=== PATIENT | male | born 1965 | race Caucasian/White ===

== ENCOUNTER 2021-04-01 14:59 | Emergency (ER) | payer MEDICARE, SELFPAY ==
[2021-04-01 15:01] VITALS: BP 176/91; PULSE 66; RESP 19; TEMP 36.4; O2SAT 97; BMI 30.4
--- NOTE | 2021-04-01 15:10 | ECG_ITS ---
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 Measurements Intervals [place] Rate: 62 P: 15 CO: 155 QRS: 49 QRSD: 91 T: 64 QT: 451 QTc: 461 Interpretive Statements SINUS RHYTHM Compared to ECG 08/28/2016 07:34:25 Sinus bradycardia no longer present T-wave abnormality no longer present Electronically Signed On 04-01-2021 16:18:53 CDT by Edward Mojica M.D. [id number]
--- NOTE | 2021-04-01 15:10 | XR_ITS ---
WS: [id number] Exam: XR chest 1V portable [id number] Date/Time of Exam: 04/01/2021 3:10 PM Reason For Exam: weakness Comparison 03/09/2018. The lungs are clear and fully inflated. Normal cardiomediastinal structures and bony elements. Signs of previous median sternotomy. XR/XR chest 1V portable [id number] IMPRESSION: 1. No acute cardiopulmonary process.
--- NOTE | 2021-04-01 15:12 | ED_ITS ---
Documented by User: DARRIUS Velasquez 04/03/21 07:10 HPI - Weakness General: Chief complaint: General Medical Stated complaint: GENERALIZED WEAKNESS/ NAUSEA Time Seen by Provider: 04/01/21 15:02 Source: patient Mode of arrival: EMS Limitations: no limitations History of Present Illness: HPI Narrative: Patient is a nice 55-year-old male who presents to ED today with a complaint of generalized weakness, nausea/vomiting, and a headache. Patient tells me he was outside working in the yard yesterday when he became very hot. He states since that time he has felt very weak and has had a headache. He states he does have a history of headaches but has not had one this severe in a long time. Denies visual changes. Patient is a chronic kidney disease patient on hemodialysis MW. He states he was at dialysis today and became nauseous. He states he has vomited a total of 4 times today-nonbloody emesis. No abdominal pain. No fevers. No neck pain. Urinating normally. He does not have any complaints of chest pain or SOB. MD Complaint: generalized weakness Onset (ago): day(s) (yesterday) Duration: constant Location: generalized Migration: none Relieving factors: none Exacerbating factors: none Associated symptoms: Reports headache(s), nausea and vomiting; Denies chest pain, chills, dysuria, fever(s) or syncope Review of Systems Const: Denies: fever(s), chills, body aches, change in appetite, change in weight, fatigue or malaise Eyes: Denies: change in vision, blurry vision, photophobia, floaters or seeing flashes Card: Denies: chest pain, palpitations, irregular heart rhythm, edema, swelling of feet/ankles, lightheadedness, syncope, pre-syncope, dyspnea on exertion, orthopnea, leg pain with exertion or acrocyanosis Resp: Denies: dyspnea, productive cough or pain on inspiration GI: Reports: nausea and vomiting; Denies: abdominal pain, heartburn or diarrhea : Denies: flank pain, difficulty urinating or dysuria Musc: Denies: neck pain, back pain, extremity pain, extremity swelling, joint pain or joint swelling Skin/Breast: Denies: rash Neuro: Reports: headache(s) and other (generalized weakness); Denies: numbness in extremities, sensory changes, lack of coordination, difficulty walking, frequent falls or dizziness PFSH ED PFSH: Social History Smoking and tobacco status: never smoked Alcohol intake: current Alcohol intake frequency: holidays/special occasions only Physical Exam Const: COMMON NORMALS: no acute distress, patient oriented x3, no limitations and alert GENERAL APPEARANCE: cooperative NUTRITIONAL APPEARANCE: obese ORIENTATION/CONSCIOUSNESS: Yes awake, Yes oriented to person, Yes oriented to place and Yes oriented to time HENMT: COMMON NORMALS: normocephalic and atraumatic HEAD & SCALP: normal to inspection, normocephalic and atraumatic Eye: COMMON NORMALS: Equal, round and reactive pupils present and EOMs intact bilaterally GENERAL EYE: appearance normal, both eyes and all related structures PUPIL: Yes Equal, round and reactive pupils present Neck/C-Spine: COMMON NORMALS: full ROM, no lymphadenopathy and no meningeal signs Resp: COMMON NORMALS: normal respiratory effort and clear to auscultation bilaterally AUSCULTATION: clear to auscultation bilaterally Cardio: COMMON NORMALS: regular rate and regular rhythm RATE: regular rate RHYTHM: regular rhythm GI: COMMON NORMALS: Normal to inspection, nondistended, normoactive bowel sounds present, Soft to palpation, non-tender, No hepatosplenomegaly present and no masses INSPECTION: Yes normal to inspection AUSCULTATION: Yes normoactive bowel sounds PALPATION: Yes Soft to palpation and Yes No hepatosplenomegaly present Extremity: COMMON NORMALS: normal to inspection GENERAL: Yes normal exam except as noted Neuro: TIAN COMA SCALE: document GCS findings Tian coma scale eye opening: Spontaneous Tian coma scale verbal response: Orientated Tian coma scale motor response: Obey commands Tian coma scale total score: 15 COMMON NORMALS: patient oriented x3, CN's II-XII intact bilaterally, moves all extremities, no focal motor deficits and no sensory deficits noted SENSORIUM/ORIENTATION: Yes alert, Yes oriented to person, Yes oriented to place and Yes oriented to time MENINGEAL SIGNS: Yes no meningeal signs Skin: COMMON NORMALS: no rashes or lesions noted GENERAL SKIN EXAM: no rashes or lesions noted TRAUMA: no lacerations or abrasions Course Vital Signs: Vital signs: Vital Signs Temperature 97.9 F 04/01/21 21:46 Pulse Rate 69 04/01/21 21:46 Respiratory Rate 19 H 04/01/21 21:46 Blood Pressure 164/87 04/01/21 21:46 Pulse Oximetry 97 04/01/21 21:46 MDM - Weakness MDM Narrative: Medical decision making narrative: Care transferred to David Michaels PA-C. Patient has not had any episodes of N/V during his visit however at the end of my shift he was found to be actively vomiting and is still complaining of a CARRILLO. His head CT is negative. Will give him some zofran, benadryl, and tylenol and see if this will help. Lab Data: Labs: Lab Results 04/01/21 04/01/21 04/01/21 Range/Units 15:20 15:20 15:20 WBC 5.6 (4.0-10.0) 10^3/ uL RBC 4.63 (4.1-5.3) 10^6/u L Hgb 14.4 (11.7-16.6) g/dL Hct 41.5 L (42.0-52.0) % MCV 89.6 (80-94) fL MCH 31.1 (28.0-34.0) pg MCHC 34.7 (30.0-36.0) g/dL RDW 13.5 (12.1-15.1) % Plt Count 180 (130-400) 10^3/c mm MPV 9.0 (7.4-10.4) fL Neut % (Auto) 55.9 % Lymph % (Auto) 30.3 % Winkler % (Auto) 7.5 % Eos % (Auto) 5.4 % Baso % (Auto) 0.7 % Neut # (Auto) 3.12 (1.8-7.7) 10^3/u L Lymph # (Auto) 1.7 (0.8-4.8) 10^3/u L Winkler # (Auto) 0.4 (0.2-0.9) 10^3/u L Eos # (Auto) 0.3 (0.0-0.8) 10^3/u L Baso # (Auto) 0.0 (0.0-0.1) 10^3/u L Nucleated RBC % (a uto) 0 % Nucleated RBCs # 0.0 /100WBC Specimen Type Sample Site ABG pH (7.35-7.45) ABG pCO2 (35-45) mmHg ABG pO2 (80.0-100.0) mmH g ABG HCO3 (22-26) mmol/L ABG O2 Saturation ABG Base Excess (-2.0-2.0) mmol/ L Eric Test VBG pH (7.32-7.42) VBG pCO2 (41-51) mmHg VBG pO2 (25-40) mmHg VBG HCO3 (24-28) mmol/L VBG Base Excess (-3.0-3.0) mmol/ L VBG Hematocrit (42-52) % A-a O2 Gradient (5-10) mmHg Hematocrit (42-52) % Hgb O2 Saturation (95-100) % Carboxyhemoglobin (0.4-20.1) %THgb Methemoglobin (0.4-1.5) % Total Hemoglobin (14-18) g/dL Ionized Calcium (1.1-1.4) mmol/L O2 Delivery Device Product Support Consultant ID Sodium 141 (136-145) mmol/L Potassium 3.8 (3.5-5.1) mmol/L Chloride 93 L (98-107) mmol/L Carbon Dioxide 38 H (22-29) mmol/L Anion Gap 13.8 (5-19) BUN 11 (6-20) mg/dL Creatinine 3.0 H (0.7-1.2) mg/dL GFR Calculation 21.8 L (90-130) mL/min Glucose 91 (65-115) mg/dL Calculated Osmolal ity 291 (285-295) mOsm/k g Calcium 8.7 (8.5-10.5) mg/dL Magnesium 1.9 (1.7-2.3) mg/dL Total Bilirubin 0.3 (0.15-1.2) mg/dL AST 5 (0-40) U/L ALT < 5 (0-41) U/L Alkaline Phosphata se 98 (40-130) IU/L Creatine Kinase 207 (39-308) U/L CK-MB (CK-2) 2.8 (0-10.4) ng/mL CK-MB (CK-2) Rel I ndex (0.0-5.3) % Troponin T Gen 5 n g/L 33 H (0-15) ng/L Troponin T 120 Min curyung (0-15) ng/L Delta Troponin T (0-10) ABS# Total Protein 8.0 (6.6-8.7) g/dL Albumin 4.2 (3.5-5.2) g/dL Globulin 3.8 (1.3-4.6) g/dL Urine Color (Yellow) Urine Appearance (CLEAR) Urine pH (5-7) Ur Specific Gravit y (1.005-1.030) Urine Protein (Negative) Urine Glucose (UA) (Normal) Urine Ketones (Negative) Urine Blood (Negative) Urine Nitrate (Negative) Urine Bilirubin (Negative) Prot Sulfosalicyli c Acd (Negative) Urine Urobilinogen (Negative) mg/dL Ur Leukocyte Nieves ase (Negative) Urine RBC (0-2) /hpf Urine WBC (0-5) /hpf Ur Squamous Epith Cells (0-5) /hpf Amorphous Sediment Urine Bacteria (NONE) /hpf 04/01/21 04/01/21 04/01/21 Range/Units 16:30 17:35 19:25 WBC (4.0-10.0) 10^3/ uL RBC (4.1-5.3) 10^6/u L Hgb (11.7-16.6) g/dL Hct (42.0-52.0) % MCV (80-94) fL MCH (28.0-34.0) pg MCHC (30.0-36.0) g/dL RDW (12.1-15.1) % Plt Count (130-400) 10^3/c mm MPV (7.4-10.4) fL Neut % (Auto) % Lymph % (Auto) % Winkler % (Auto) % Eos % (Auto) % Baso % (Auto) % Neut # (Auto) (1.8-7.7) 10^3/u L Lymph # (Auto) (0.8-4.8) 10^3/u L Winkler # (Auto) (0.2-0.9) 10^3/u L Eos # (Auto) (0.0-0.8) 10^3/u L Baso # (Auto) (0.0-0.1) 10^3/u L Nucleated RBC % (a uto) % Nucleated RBCs # /100WBC Specimen Type Arterial Sample Site Radial, right ABG pH 7.55 H (7.35-7.45) ABG pCO2 41.6 (35-45) mmHg ABG pO2 73.2 L (80.0-100.0) mmH g ABG HCO3 35.9 H (22-26) mmol/L ABG O2 Saturation 96.0 ABG Base Excess 12.2 H (-2.0-2.0) mmol/ L Eric Test Pos VBG pH (7.32-7.42) VBG pCO2 (41-51) mmHg VBG pO2 (25-40) mmHg VBG HCO3 (24-28) mmol/L VBG Base Excess (-3.0-3.0) mmol/ L VBG Hematocrit (42-52) % A-a O2 Gradient 3.3 L (5-10) mmHg Hematocrit 42.3 (42-52) % Hgb O2 Saturation 94.5 L (95-100) % Carboxyhemoglobin 0.8 (0.4-20.1) %THgb Methemoglobin 0.8 (0.4-1.5) % Total Hemoglobin 13.8 L (14-18) g/dL Ionized Calcium 1.0 L (1.1-1.4) mmol/L O2 Delivery Device Room air Product Support Consultant ID Gd Sodium 143.0 (136-145) mmol/L Potassium 4.3 (3.5-5.1) mmol/L Chloride (98-107) mmol/L Carbon Dioxide (22-29) mmol/L Anion Gap (5-19) BUN (6-20) mg/dL Creatinine (0.7-1.2) mg/dL GFR Calculation (90-130) mL/min Glucose 109.0 (65-115) mg/dL Calculated Osmolal ity (285-295) mOsm/k g Calcium (8.5-10.5) mg/dL Magnesium (1.7-2.3) mg/dL Total Bilirubin (0.15-1.2) mg/dL AST (0-40) U/L ALT (0-41) U/L Alkaline Phosphata se (40-130) IU/L Creatine Kinase (39-308) U/L CK-MB (CK-2) (0-10.4) ng/mL CK-MB (CK-2) Rel I ndex (0.0-5.3) % Troponin T Gen 5 n g/L (0-15) ng/L Troponin T 120 Min curyung 30.92 H (0-15) ng/L Delta Troponin T -2.08 L (0-10) ABS# Total Protein (6.6-8.7) g/dL Albumin (3.5-5.2) g/dL Globulin (1.3-4.6) g/dL Urine Color Straw (Yellow) Urine Appearance Clear (CLEAR) Urine pH 9 H (5-7) Ur Specific Gravit y 1.010 (1.005-1.030) Urine Protein Trace (Negative) Urine Glucose (UA) Norm (Normal) Urine Ketones Negative (Negative) Urine Blood Neg (Negative) Urine Nitrate Negative (Negative) Urine Bilirubin Neg (Negative) Prot Sulfosalicyli c Acd Negative (Negative) Urine Urobilinogen Norm (Negative) mg/dL Ur Leukocyte Nieves ase Negative (Negative) Urine RBC None (0-2) /hpf Urine WBC None (0-5) /hpf Ur Squamous Epith Cells 0-4 H (0-5) /hpf Amorphous Sediment Not Reportable Urine Bacteria Trace (NONE) /hpf 04/01/21 Range/Units 20:20 WBC (4.0-10.0) 10^3/ uL RBC (4.1-5.3) 10^6/u L Hgb (11.7-16.6) g/dL Hct (42.0-52.0) % MCV (80-94) fL MCH (28.0-34.0) pg MCHC (30.0-36.0) g/dL RDW (12.1-15.1) % Plt Count (130-400) 10^3/c mm MPV (7.4-10.4) fL Neut % (Auto) % Lymph % (Auto) % Winkler % (Auto) % Eos % (Auto) % Baso % (Auto) % Neut # (Auto) (1.8-7.7) 10^3/u L Lymph # (Auto) (0.8-4.8) 10^3/u L Winkler # (Auto) (0.2-0.9) 10^3/u L Eos # (Auto) (0.0-0.8) 10^3/u L Baso # (Auto) (0.0-0.1) 10^3/u L Nucleated RBC % (a uto) % Nucleated RBCs # /100WBC Specimen Type Venous Sample Site Not Reportable ABG pH (7.35-7.45) ABG pCO2 (35-45) mmHg ABG pO2 (80.0-100.0) mmH g ABG HCO3 (22-26) mmol/L ABG O2 Saturation ABG Base Excess (-2.0-2.0) mmol/ L Eric Test N/a VBG pH 7.45 H (7.32-7.42) VBG pCO2 57.0 H (41-51) mmHg VBG pO2 20.0 L (25-40) mmHg VBG HCO3 39.8 H (24-28) mmol/L VBG Base Excess 13.5 H (-3.0-3.0) mmol/ L VBG Hematocrit 39.9 L (42-52) % A-a O2 Gradient (5-10) mmHg Hematocrit (42-52) % Hgb O2 Saturation (95-100) % Carboxyhemoglobin (0.4-20.1) %THgb Methemoglobin (0.4-1.5) % Total Hemoglobin (14-18) g/dL Ionized Calcium (1.1-1.4) mmol/L O2 Delivery Device None Product Support Consultant ID ellpe Sodium (136-145) mmol/L Potassium (3.5-5.1) mmol/L Chloride (98-107) mmol/L Carbon Dioxide (22-29) mmol/L Anion Gap (5-19) BUN (6-20) mg/dL Creatinine (0.7-1.2) mg/dL GFR Calculation (90-130) mL/min Glucose (65-115) mg/dL Calculated Osmolal ity (285-295) mOsm/k g Calcium (8.5-10.5) mg/dL Magnesium (1.7-2.3) mg/dL Total Bilirubin (0.15-1.2) mg/dL AST (0-40) U/L ALT (0-41) U/L Alkaline Phosphata se (40-130) IU/L Creatine Kinase (39-308) U/L CK-MB (CK-2) (0-10.4) ng/mL CK-MB (CK-2) Rel I ndex (0.0-5.3) % Troponin T Gen 5 n g/L (0-15) ng/L Troponin T 120 Min curyung (0-15) ng/L Delta Troponin T (0-10) ABS# Total Protein (6.6-8.7) g/dL Albumin (3.5-5.2) g/dL Globulin (1.3-4.6) g/dL Urine Color (Yellow) Urine Appearance (CLEAR) Urine pH (5-7) Ur Specific Gravit y (1.005-1.030) Urine Protein (Negative) Urine Glucose (UA) (Normal) Urine Ketones (Negative) Urine Blood (Negative) Urine Nitrate (Negative) Urine Bilirubin (Negative) Prot Sulfosalicyli c Acd (Negative) Urine Urobilinogen (Negative) mg/dL Ur Leukocyte Nieves ase (Negative) Urine RBC (0-2) /hpf Urine WBC (0-5) /hpf Ur Squamous Epith Cells (0-5) /hpf Amorphous Sediment Urine Bacteria (NONE) /hpf Imaging Data^: CXR: Radiologist's impression: [place] [address] XRay Report Signed Patient: Phil Goss Unit #: [id number] : 1965 Age/Sex: 55 / M ADM Date: 04/01/21 Loc: ER Room/Bed: Attending Dr: Ordering Provider/Ordering MD: Celsa Adams Date of Service: 04/01/21 Procedure(s): XR chest 1V portable [id number] Accession Number(s): [id number] Report Number: [id number] WS: [id number] Exam: XR chest 1V portable [id number] Date/Time of Exam: 04/01/2021 3:10 PM Reason For Exam: weakness Comparison 03/09/2018. The lungs are clear and fully inflated. Normal cardiomediastinal structures and bony elements. Signs of previous median sternotomy. XR/XR chest 1V portable [id number] IMPRESSION: 1. No acute cardiopulmonary process. Dictated By: Abhay Alanis DO Signed By: Abhay Alanis DO Signed Date/Time: 04/01/21 1528 DD/ 1527 CT Head: Radiologist's impression: [address] [address] [address] Scan Report Signed Patient: Phil Goss Unit #: [id number] : 1965 Age/Sex: 55 / M ADM Date: 04/01/21 Loc: ER Room/Bed: Attending Dr: Ordering Provider/Ordering MD: Celsa Adams Date of Service: 04/01/21 Procedure(s): CT head wo con* [id number] Accession Number(s): [id number] Report Number: [id number] PROCEDURE INFORMATION: Exam: CT Head Without Contrast Exam date and time: 04/01/2021 3:22 PM Age: 55 years old Clinical indication: Pain; Headache not specified; Additional info: CARRILLO, n/v, weakness TECHNIQUE: Imaging protocol: Computed tomography of the head without contrast. Radiation optimization: All CT scans at this facility use at least one of these dose optimization techniques: automated exposure control; mA and/or kV adjustment per patient size (includes targeted exams where dose is matched to clinical indication); or iterative reconstruction. COMPARISON: No relevant prior studies available. RADIATION DOSE METRICS: Total DLP (mGy-cm): 1007.3 FINDINGS: Brain: No acute intracranial hemorrhage, cerebral edema, or midline shift. Cerebral ventricles: No hydrocephalus. Bones/joints: No acute fracture. Paranasal sinuses: There is no acute sinusitis. Mastoid air cells: Visualized mastoid air cells are well aerated. Orbital cavity: Unremarkable as visualized. Soft tissues: Unremarkable. CT/CT head wo con* 00013 IMPRESSION: No acute intracranial abnormality. Radiation Dose CTDIVOL = (mGy): DLP = 1007.3 (mGy-cm) Dictated By: Timmy Charles MD Signed By: Timmy Charles MD Signed Date/Time: 04/01/21 1637 DD/ 1636 EKG Data^: EKG 1: EKG interpretation date: 04/01/21 EKG interpretation time: 16:04 Interpretation: Sinus rhythm Rate [address] elevation or depression changes noted Discharge Plan Discharge Patient Disposition: Home Clinical Impression: Generalized weakness Nausea & vomiting Qualifiers: Vomiting type: unspecified Vomiting Intractability: non-intractable Qualified Code(s): R11.2 - Nausea with vomiting, unspecified Condition: Stable Prescriptions: New ondansetron 4 mg tablet,disintegrating 4 mg PO Q8H Qty: 15 RF: 0 No Action carvedilol 25 mg tablet 25 mg PO BID RF: 0 Tylenol Extra Strength 500 mg Tablet 1,000 mg PO PRN RF: 0 Claritin 10 mg Tablet 10 mg PO BEDTIME RF: 0 RenaPlex-D 800 mcg-12.5 mg -2,000 unit tablet 1 tab PO BEDTIME RF: 0 Discharge Orders: Discharge ED (Routine); Ordered 04/01/21 Ordered By: Celsa Adams Referrals: Toya Garcia, RN [Primary Care Provider] - Discharge Diet: Advance as tolerated and Clear Liquid Discharge Activity: Increase activity as tolerated Patient Instructions: Acute Nausea and Vomiting (ED), Weakness (ED), Weakness (Generalized) Activity Restrictions/Additional Instructions: As we discussed you may return to the emergency department for worsening weakness, fevers, severe lightheadedness/dizziness, passing out episodes, onset of chest pain or shortness of breath/difficulty breathing, or any other concerns you may have. Otherwise please follow-up with your primary care provider this week. Sign Out Sign Out Data: Patient Sign Out occurred on 04/01/21 at 17:11. Patient's care was discussed, and care was transferred from to DARRIUS Ibrahim. Coding Level of Care Code ED Blood Bank Custodian for Chg Fwd Exam Comprehensive Documented by User: DARRIUS Ibrahim 04/03/21 05:06 HPI - Weakness General: Chief complaint: General Medical Stated complaint: GENERALIZED WEAKNESS/ NAUSEA Time Seen by Provider: 04/01/21 15:02 PFSH ED PFSH: Social History Smoking and tobacco status: never smoked Alcohol intake: current Alcohol intake frequency: holidays/special occasions only Course Reevaluation(s): Reevaluation #1: After patient received a dose of Zofran, Benadryl and Tylenol while here in the ED his symptoms greatly improved and nausea was controlled. Vital Signs: Vital signs: Vital Signs Temperature 97.9 F 04/01/21 21:46 Pulse Rate 69 04/01/21 21:46 Respiratory Rate 19 H 04/01/21 21:46 Blood Pressure 164/87 04/01/21 21:46 Pulse Oximetry 97 04/01/21 21:46 MDM - Weakness MDM Narrative: Medical decision making narrative: Patient is a 55-year-old male comes to the ED with nausea and vomiting. Patient is currently on dialysis and will receive dialysis today and developed some nausea and vomiting and was sent here to the ED for further evaluation. I took over patient case from Celsa Adams the physician's emergency room physician assistant at shift change 5 PM. She had patient ready for discharge but then he started developing nausea and vomiting again so added some more lab orders and antinausea meds before she left. Celsa performed the initial history and physical exam and I agree with her findings. Patient CBC was unremarkable. His creatinine was 3 which is his normal range. Patient had elevated carbon dioxide of 38 but the rest of CMP was unremarkable. Troponins were negative and chest x-ray showed no acute findings. ABG showed a blood pH of 7.55. Venous blood gas was done several hours later and it showed a pH of 7.45. EKG showed no ST segment elevation or depression seen. CT of head showed no acute findings. Patient's nausea and vomiting was well controlled with meds while here in the ED. patient was diagnosed with generalized weakness and nausea and vomiting. He was sent home with a prescription for Zofran. He was told to follow-up with his PCP in 7 days for reevaluation and to go to his next dialysis appointment on Thursday. Return to ED precautions given. Patient understood and agreed with plan. Lab Data: Labs: Lab Results 04/01/21 04/01/21 04/01/21 Range/Units 15:20 15:20 15:20 WBC 5.6 (4.0-10.0) 10^3/ uL RBC 4.63 (4.1-5.3) 10^6/u L Hgb 14.4 (11.7-16.6) g/dL Hct 41.5 L (42.0-52.0) % MCV 89.6 (80-94) fL MCH 31.1 (28.0-34.0) pg MCHC 34.7 (30.0-36.0) g/dL RDW 13.5 (12.1-15.1) % Plt Count 180 (130-400) 10^3/c mm MPV 9.0 (7.4-10.4) fL Neut % (Auto) 55.9 % Lymph % (Auto) 30.3 % Winkler % (Auto) 7.5 % Eos % (Auto) 5.4 % Baso % (Auto) 0.7 % Neut # (Auto) 3.12 (1.8-7.7) 10^3/u L Lymph # (Auto) 1.7 (0.8-4.8) 10^3/u L Winkler # (Auto) 0.4 (0.2-0.9) 10^3/u L Eos # (Auto) 0.3 (0.0-0.8) 10^3/u L Baso # (Auto) 0.0 (0.0-0.1) 10^3/u L Nucleated RBC % (a uto) 0 % Nucleated RBCs # 0.0 /100WBC Specimen Type Sample Site ABG pH (7.35-7.45) ABG pCO2 (35-45) mmHg ABG pO2 (80.0-100.0) mmH g ABG HCO3 (22-26) mmol/L ABG O2 Saturation ABG Base Excess (-2.0-2.0) mmol/ L Eric Test VBG pH (7.32-7.42) VBG pCO2 (41-51) mmHg VBG pO2 (25-40) mmHg VBG HCO3 (24-28) mmol/L VBG Base Excess (-3.0-3.0) mmol/ L VBG Hematocrit (42-52) % A-a O2 Gradient (5-10) mmHg Hematocrit (42-52) % Hgb O2 Saturation (95-100) % Carboxyhemoglobin (0.4-20.1) %THgb Methemoglobin (0.4-1.5) % Total Hemoglobin (14-18) g/dL Ionized Calcium (1.1-1.4) mmol/L O2 Delivery Device Product Support Consultant ID Sodium 141 (136-145) mmol/L Potassium 3.8 (3.5-5.1) mmol/L Chloride 93 L (98-107) mmol/L Carbon Dioxide 38 H (22-29) mmol/L Anion Gap 13.8 (5-19) BUN 11 (6-20) mg/dL Creatinine 3.0 H (0.7-1.2) mg/dL GFR Calculation 21.8 L (90-130) mL/min Glucose 91 (65-115) mg/dL Calculated Osmolal ity 291 (285-295) mOsm/k g Calcium 8.7 (8.5-10.5) mg/dL Magnesium 1.9 (1.7-2.3) mg/dL Total Bilirubin 0.3 (0.15-1.2) mg/dL AST 5 (0-40) U/L ALT < 5 (0-41) U/L Alkaline Phosphata se 98 (40-130) IU/L Creatine Kinase 207 (39-308) U/L CK-MB (CK-2) 2.8 (0-10.4) ng/mL CK-MB (CK-2) Rel I ndex (0.0-5.3) % Troponin T Gen 5 n g/L 33 H (0-15) ng/L Troponin T 120 Min curyung (0-15) ng/L Delta Troponin T (0-10) ABS# Total Protein 8.0 (6.6-8.7) g/dL Albumin 4.2 (3.5-5.2) g/dL Globulin 3.8 (1.3-4.6) g/dL Urine Color (Yellow) Urine Appearance (CLEAR) Urine pH (5-7) Ur Specific Gravit y (1.005-1.030) Urine Protein (Negative) Urine Glucose (UA) (Normal) Urine Ketones (Negative) Urine Blood (Negative) Urine Nitrate (Negative) Urine Bilirubin (Negative) Prot Sulfosalicyli c Acd (Negative) Urine Urobilinogen (Negative) mg/dL Ur Leukocyte Nieves ase (Negative) Urine RBC (0-2) /hpf Urine WBC (0-5) /hpf Ur Squamous Epith Cells (0-5) /hpf Amorphous Sediment Urine Bacteria (NONE) /hpf 04/01/21 04/01/21 04/01/21 Range/Units 16:30 17:35 19:25 WBC (4.0-10.0) 10^3/ uL RBC (4.1-5.3) 10^6/u L Hgb (11.7-16.6) g/dL Hct (42.0-52.0) % MCV (80-94) fL MCH (28.0-34.0) pg MCHC (30.0-36.0) g/dL RDW (12.1-15.1) % Plt Count (130-400) 10^3/c mm MPV (7.4-10.4) fL Neut % (Auto) % Lymph % (Auto) % Winkler % (Auto) % Eos % (Auto) % Baso % (Auto) % Neut # (Auto) (1.8-7.7) 10^3/u L Lymph # (Auto) (0.8-4.8) 10^3/u L Winkler # (Auto) (0.2-0.9) 10^3/u L Eos # (Auto) (0.0-0.8) 10^3/u L Baso # (Auto) (0.0-0.1) 10^3/u L Nucleated RBC % (a uto) % Nucleated RBCs # /100WBC Specimen Type Arterial Sample Site Radial, right ABG pH 7.55 H (7.35-7.45) ABG pCO2 41.6 (35-45) mmHg ABG pO2 73.2 L (80.0-100.0) mmH g ABG HCO3 35.9 H (22-26) mmol/L ABG O2 Saturation 96.0 ABG Base Excess 12.2 H (-2.0-2.0) mmol/ L Eric Test Pos VBG pH (7.32-7.42) VBG pCO2 (41-51) mmHg VBG pO2 (25-40) mmHg VBG HCO3 (24-28) mmol/L VBG Base Excess (-3.0-3.0) mmol/ L VBG Hematocrit (42-52) % A-a O2 Gradient 3.3 L (5-10) mmHg Hematocrit 42.3 (42-52) % Hgb O2 Saturation 94.5 L (95-100) % Carboxyhemoglobin 0.8 (0.4-20.1) %THgb Methemoglobin 0.8 (0.4-1.5) % Total Hemoglobin 13.8 L (14-18) g/dL Ionized Calcium 1.0 L (1.1-1.4) mmol/L O2 Delivery Device Room air Product Support Consultant ID Gd Sodium 143.0 (136-145) mmol/L Potassium 4.3 (3.5-5.1) mmol/L Chloride (98-107) mmol/L Carbon Dioxide (22-29) mmol/L Anion Gap (5-19) BUN (6-20) mg/dL Creatinine (0.7-1.2) mg/dL GFR Calculation (90-130) mL/min Glucose 109.0 (65-115) mg/dL Calculated Osmolal ity (285-295) mOsm/k g Calcium (8.5-10.5) mg/dL Magnesium (1.7-2.3) mg/dL Total Bilirubin (0.15-1.2) mg/dL AST (0-40) U/L ALT (0-41) U/L Alkaline Phosphata se (40-130) IU/L Creatine Kinase (39-308) U/L CK-MB (CK-2) (0-10.4) ng/mL CK-MB (CK-2) Rel I ndex (0.0-5.3) % Troponin T Gen 5 n g/L (0-15) ng/L Troponin T 120 Min curyung 30.92 H (0-15) ng/L Delta Troponin T -2.08 L (0-10) ABS# Total Protein (6.6-8.7) g/dL Albumin (3.5-5.2) g/dL Globulin (1.3-4.6) g/dL Urine Color Straw (Yellow) Urine Appearance Clear (CLEAR) Urine pH 9 H (5-7) Ur Specific Gravit y 1.010 (1.005-1.030) Urine Protein Trace (Negative) Urine Glucose (UA) Norm (Normal) Urine Ketones Negative (Negative) Urine Blood Neg (Negative) Urine Nitrate Negative (Negative) Urine Bilirubin Neg (Negative) Prot Sulfosalicyli c Acd Negative (Negative) Urine Urobilinogen Norm (Negative) mg/dL Ur Leukocyte Nieves ase Negative (Negative) Urine RBC None (0-2) /hpf Urine WBC None (0-5) /hpf Ur Squamous Epith Cells 0-4 H (0-5) /hpf Amorphous Sediment Not Reportable Urine Bacteria Trace (NONE) /hpf 04/01/21 Range/Units 20:20 WBC (4.0-10.0) 10^3/ uL RBC (4.1-5.3) 10^6/u L Hgb (11.7-16.6) g/dL Hct (42.0-52.0) % MCV (80-94) fL MCH (28.0-34.0) pg MCHC (30.0-36.0) g/dL RDW (12.1-15.1) % Plt Count (130-400) 10^3/c mm MPV (7.4-10.4) fL Neut % (Auto) % Lymph % (Auto) % Winkler % (Auto) % Eos % (Auto) % Baso % (Auto) % Neut # (Auto) (1.8-7.7) 10^3/u L Lymph # (Auto) (0.8-4.8) 10^3/u L Winkler # (Auto) (0.2-0.9) 10^3/u L Eos # (Auto) (0.0-0.8) 10^3/u L Baso # (Auto) (0.0-0.1) 10^3/u L Nucleated RBC % (a uto) % Nucleated RBCs # /100WBC Specimen Type Venous Sample Site Not Reportable ABG pH (7.35-7.45) ABG pCO2 (35-45) mmHg ABG pO2 (80.0-100.0) mmH g ABG HCO3 (22-26) mmol/L ABG O2 Saturation ABG Base Excess (-2.0-2.0) mmol/ L Eric Test N/a VBG pH 7.45 H (7.32-7.42) VBG pCO2 57.0 H (41-51) mmHg VBG pO2 20.0 L (25-40) mmHg VBG HCO3 39.8 H (24-28) mmol/L VBG Base Excess 13.5 H (-3.0-3.0) mmol/ L VBG Hematocrit 39.9 L (42-52) % A-a O2 Gradient (5-10) mmHg Hematocrit (42-52) % Hgb O2 Saturation (95-100) % Carboxyhemoglobin (0.4-20.1) %THgb Methemoglobin (0.4-1.5) % Total Hemoglobin (14-18) g/dL Ionized Calcium (1.1-1.4) mmol/L O2 Delivery Device None Product Support Consultant ID [email or web address] Sodium (136-145) mmol/L Potassium (3.5-5.1) mmol/L Chloride (98-107) mmol/L Carbon Dioxide (22-29) mmol/L Anion Gap (5-19) BUN (6-20) mg/dL Creatinine (0.7-1.2) mg/dL GFR Calculation (90-130) mL/min Glucose (65-115) mg/dL Calculated Osmolal ity (285-295) mOsm/k g Calcium (8.5-10.5) mg/dL Magnesium (1.7-2.3) mg/dL Total Bilirubin (0.15-1.2) mg/dL AST (0-40) U/L ALT (0-41) U/L Alkaline Phosphata se (40-130) IU/L Creatine Kinase (39-308) U/L CK-MB (CK-2) (0-10.4) ng/mL CK-MB (CK-2) Rel I ndex (0.0-5.3) % Troponin T Gen 5 n g/L (0-15) ng/L Troponin T 120 Min curyung (0-15) ng/L Delta Troponin T (0-10) ABS# Total Protein (6.6-8.7) g/dL Albumin (3.5-5.2) g/dL Globulin (1.3-4.6) g/dL Urine Color (Yellow) Urine Appearance (CLEAR) Urine pH (5-7) Ur Specific Gravit y (1.005-1.030) Urine Protein (Negative) Urine Glucose (UA) (Normal) Urine Ketones (Negative) Urine Blood (Negative) Urine Nitrate (Negative) Urine Bilirubin (Negative) Prot Sulfosalicyli c Acd (Negative) Urine Urobilinogen (Negative) mg/dL Ur Leukocyte Nieves ase (Negative) Urine RBC (0-2) /hpf Urine WBC (0-5) /hpf Ur Squamous Epith Cells (0-5) /hpf Amorphous Sediment Urine Bacteria (NONE) /hpf Discharge Plan Discharge Patient Disposition: Home Clinical Impression: Generalized weakness Nausea & vomiting Qualifiers: Vomiting type: unspecified Vomiting Intractability: non-intractable Qualified Code(s): R11.2 - Nausea with vomiting, unspecified Condition: Stable Prescriptions: New ondansetron 4 mg tablet,disintegrating 4 mg PO Q8H Qty: 15 RF: 0 No Action carvedilol 25 mg tablet 25 mg PO BID RF: 0 Tylenol Extra Strength 500 mg Tablet 1,000 mg PO PRN RF: 0 Claritin 10 mg Tablet 10 mg PO BEDTIME RF: 0 RenaPlex-D 800 mcg-12.5 mg -2,000 unit tablet 1 tab PO BEDTIME RF: 0 Discharge Orders: Discharge ED (Routine); Ordered 04/01/21 Ordered By: Celsa Adams Referrals: Toya Garcia, RN [Primary Care Provider] - Discharge Diet: Advance as tolerated and Clear Liquid Discharge Activity: Increase activity as tolerated Patient Instructions: Acute Nausea and Vomiting (ED), Weakness (ED), Weakness (Generalized) Activity Restrictions/Additional Instructions: As we discussed you may return to the emergency department for worsening weakness, fevers, severe lightheadedness/dizziness, passing out episodes, onset of chest pain or shortness of breath/difficulty breathing, or any other concerns you may have. Otherwise please follow-up with your primary care provider this week. Sign Out Sign Out Data: Patient Sign Out occurred on 04/01/21 at 17:11. Patient's care was discussed, and care was transferred from to DARRIUS Ibrahim. Coding Level of Care Code ED Blood Bank Custodian for Roma Joshi Exam Comprehensive
--- NOTE | 2021-04-01 15:16 | CTR_ITS ---
PROCEDURE INFORMATION: Exam: CT Head Without Contrast Exam date and time: 04/01/2021 3:22 PM Age: 55 years old Clinical indication: Pain; Headache not specified; Additional info: CARRILLO, n/v, weakness TECHNIQUE: Imaging protocol: Computed tomography of the head without contrast. Radiation optimization: All CT scans at this facility use at least one of these dose optimization techniques: automated exposure control; mA and/or kV adjustment per patient size (includes targeted exams where dose is matched to clinical indication); or iterative reconstruction. COMPARISON: No relevant prior studies available. RADIATION DOSE METRICS: Total DLP (mGy-cm): 1007.3 FINDINGS: Brain: No acute intracranial hemorrhage, cerebral edema, or midline shift. Cerebral ventricles: No hydrocephalus. Bones/joints: No acute fracture. Paranasal sinuses: There is no acute sinusitis. Mastoid air cells: Visualized mastoid air cells are well aerated. Orbital cavity: Unremarkable as visualized. Soft tissues: Unremarkable. CT/CT head wo con* [id number] IMPRESSION: No acute intracranial abnormality. Radiation Dose CTDIVOL = (mGy): DLP = 1007.3 (mGy-cm)
[2021-04-01 15:30] LABS: Basophils % 0.7 %; Eosinophils # 0.3 10^3/uL (0.0-0.8); Eosinophils % 5.4 %; Hematocrit 41.5 % (42.0-52.0); Hemoglobin 14.4 g/dL (11.7-16.6); Lymphocytes # 1.7 10^3/uL (0.8-4.8); Lymphocytes % 30.3 %; Mean Corpuscular HGB Conc 34.7 g/dL (30.0-36.0); Mean Corpuscular Hemoglobin 31.1 pg (28.0-34.0); Mean Corpuscular Volume 89.6 fL (80-94); Monocytes # 0.4 10^3/uL (0.2-0.9); Monocytes % 7.5 %; Neutrophils # 3.12 10^3/uL (1.8-7.7); Neutrophils % 55.9 %; Nucleated Red Blood Cells % 0 %; Platelet Count 180 10^3/cmm (130-400); Red Blood Count 4.63 10^6/uL (4.1-5.3); Red Cell Distribution Width 13.5 % (12.1-15.1); White Blood Count 5.6 10^3/uL (4.0-10.0)
[2021-04-01] MEDS: sodium chloride 0.9% 1,000 ML 999 ML IV (15:35)
[2021-04-01 15:39] VITALS: RESP 15
[2021-04-01 15:49] LABS: Albumin Level 4.2 g/dL (3.5-5.2); Alkaline Phosphatase 98 IU/L (40-130); Blood Urea Nitrogen 11 mg/dL (6-20); Calcium 8.7 mg/dL (8.5-10.5); Carbon Dioxide 38 mmol/L (22-29); Chloride 93 mmol/L (98-107); Creatine Phosphokinase 207 U/L (39-308); Globulin 3.8 g/dL (1.3-4.6); Glomerular Filtration Rate 21.8 mL/min (90-130); Glucose 91 mg/dL (65-115); Magnesium 1.9 mg/dL (1.7-2.3); Osmolality Calculated 291 mOsm/kg (285-295); Sodium 141 mmol/L (136-145); Total Bilirubin 0.3 mg/dL (0.15-1.2)
[2021-04-01 15:52] LABS: Anion Gap 13.8 (5-19); Potassium 3.8 mmol/L (3.5-5.1)
[2021-04-01 16:01] LABS: Alanine Aminotransferase < 5 U/L (0-41); Aspartate Amino Transferase 5 U/L (0-40)
[2021-04-01 16:30] LABS: CKMB 2.8 ng/mL (0-10.4)
[2021-04-01 16:56] LABS: Add Urine Microscopic? YES; Bilirubin Urine Neg (Negative); Blood Urine Neg (Negative); Glucose Urine UA Norm (Normal); Ketones Urine Negative (Negative); Leukocyte Esterase Urine Negative (Negative); Nitrate Urine Negative (Negative); Protein Urine Trace (Negative); Sulfosalicylic Acid Urine Negative (Negative); Urine Appearance Clear (CLEAR); Urine Color Straw (Yellow); Urobilinogen Urine Norm (Negative); pH Urine 9 (5-7)
[2021-04-01 17:01] LABS: Add Urine Culture? No; Bacteria Urine TRACE /hpf; Squamous Epithelial Cell Urine 0-4 /hpf (0-5)
[2021-04-01] MEDS: diphenhydrAMINE 50 mg/mL SDV 1mL 25 MG IVP (17:13)
[2021-04-01] MEDS: acetaminophen 1,000 MG/100 ML PIGGYBACK 400 MG IV (17:13)
[2021-04-01] MEDS: ondansetron 2 mg/ML SDV 2 mL 4 MG IVP (17:13)
[2021-04-01 17:27] LABS: Troponin T (5th) Once 33 ng/L (0-15)
[2021-04-01 17:39] VITALS: PULSE 62; RESP 18; O2SAT 98
[2021-04-01 17:51] LABS: ABG PCO2 41.6 mmHg (35-45); ABG PH Result 7.55 (7.35-7.45); Alveolar-Arterial Oxygen Gradi 3.3 mmHg (5-10); Arterial Blood Gas Hematocrit 42.3 % (42-52); Base Excess ABG 12.2 mmol/L (-2.0-2.0); Blood Gas Allen Test Pos; Blood Gas Operator Identificat GD; Blood Gas Sample Site Radial, right; Blood Gas Sample Type Arterial; Carboxyhemoglobin 0.8 %THgb (0.4-20.1); HCO3 ABG 35.9 mmol/L (22-26); HGB O2 Sat 94.5 % (95-100); Methemoglobin 0.8 % (0.4-1.5); Oxygen Device ROOM AIR; PO2 ABG 73.2 mmHg (80.0-100.0); Potassium Level - ABG 4.3 mmol/L (3.5-5.0); Total Hemoglobin 13.8 g/dL (14-18)
[2021-04-01 18:00] VITALS: RESP 15
[2021-04-01 20:10] LABS: Troponin 5 2HR 30.92 ng/L (0-15)
[2021-04-01 20:15] LABS: Troponin 5 2HR Delta -2.08 ABS# (0-10)
[2021-04-01 20:27] LABS: Blood Gas Sample Type Venous
[2021-04-01 21:14] LABS: Venous Blood Gas Hematocrit 39.9 % (42-52); pH VBG 7.45 (7.32-7.42)
[2021-04-01 21:15] LABS: Base Excess VBG 13.5 mmol/L (-3.0-3.0); HCO3 VBG 39.8 mmol/L (24-28)
[2021-04-01 21:46] VITALS: BP 164/87; PULSE 69; RESP 19; TEMP 36.6; O2SAT 97
== END 2021-04-01 22:00 | disposition home or self-care (01) ==
PROVIDERS: Physician Assistant; Emergency Provider Physician Assistant
DX: R53.1 Weakness (principal); R11.2 Nausea with vomiting, unspecified
CPT/HCPCS: 36600; 70450; 71045; 80051; 80053; 81001; 82330; 82550; 82553; 82803; 82805; 83735; 84484; 85025; 93005; 96365; 96375; 99284; J1200; J2405; J7030

== ENCOUNTER 2023-07-27 14:37 | Emergency (ER) | payer MEDICARE, SELFPAY ==
[2023-07-27] VITALS (14 sets, daily range): BP systolic 152–173; BP diastolic 68–86; PULSE 59–71; RESP 15–29; O2SAT 93–100; BMI 30.4
--- NOTE | 2023-07-27 14:39 | ECG_ITS ---
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 Measurements Intervals [place] Rate: 63 P: 30 [place]: 156 QRS: 48 QRSD: 97 T: 54 QT: 438 QTc: 452 Interpretive Statements SINUS RHYTHM WITH OCCASIONAL SUPRAVENTRICULAR PREMATURE COMPLEXES Compared to ECG 04/01/2021 16:04:07 No significant changes Electronically Signed On 07-27-2023 21:16:28 CDT by Rhea Gonzales M.D. [id number]
--- NOTE | 2023-07-27 14:39 | XR_ITS ---
WS: [id number] XR chest 1V portable [id number] REASON FOR EXAM: cp FINDINGS: The chest is unchanged compared to 04/01/2021. Sternal sutures and small surgical clips compatible with coronary artery bypass surgery. Normal thoracic aorta. No significant cardiac enlargement. Calcified granulomas disease bilaterally. No acute pulmonary parenchymal or pleural abnormality. No significant abnormality of the bony thorax. IMPRESSION: No acute chest abnormality.
[2023-07-27 15:16] LABS: Basophils # 0.1 10^3/uL (0.0-0.1); Basophils % 1.1 %; Eosinophils # 0.3 10^3/uL (0.0-0.8); Eosinophils % 6.3 %; Hematocrit 37.3 % (37-53); Lymphocytes # 1.6 10^3/uL (0.8-4.8); Lymphocytes % 34.5 %; Mean Corpuscular HGB Conc 33.5 g/dL (30-55); Mean Corpuscular Hemoglobin 30.6 pg (27-33); Mean Corpuscular Volume 91.2 fl (82-101); Mean Platelet Volume 8.9 fL (7.4-10.4); Monocytes # 0.5 10^3/uL (0.2-0.9); Monocytes % 11.2 %; Neutrophils # 2.21 10^3/uL (1.8-7.7); Neutrophils % 46.7 %; Nucleated Red Blood Cells % 0 %; Platelet Count 168 10^3/cmm (157-399); Red Blood Count 4.09 10^6/uL (3.85-5.65); Red Cell Distribution Width 13.2 % (12.1-15.1); White Blood Count 4.73 10^3/uL (3.29-11.43)
--- NOTE | 2023-07-27 15:22 | W.ED.ARRPALP ---
Documented by User: DARRIUS Velasquez 07/27/23 15:55 HPI - Arrhythmia/Palpitations General: Chief Complaint: Arrhythmia/Palpitations Stated Complaint: IRREGULAR HR Time Seen by Provider: 07/27/23 14:51 Source: patient Mode of arrival: ambulatory Limitations: no limitations History of Present Illness: Patient is a nice 57-year-old male who presents to ED today with complaint of palpitations and chest pain. Patient states he receives dialysis MWF and was just finishing his treatment for the day when he began noticing some palpitations and mild chest discomforts. He was instructed to come to the ED for further evaluation. Patient states he has a history of open heart surgery. He states this was approximately 7 years ago and he has not followed up with cardiology since. He states he is not on any type of cardiac medication apart from carvedilol for his high blood pressure. Patient upon arrival rates his chest pain at a 2/10. There is no radicular symptoms. He does not complain of shortness of breath or difficulty breathing. MD complaint: skipped beats and palpitations Onset (ago): hour(s) Duration: constant Severity: mild Context: occurred during rest Associated symptoms: Reports other (chest pain); Deny nausea, pre-syncope, syncope or vomiting Review of Systems Const: Denies: fever(s), chills, body aches, fatigue or malaise Eyes: Denies: change in vision or blurry vision Card: Reports: chest pain and palpitations; Denies: irregular heart rhythm, edema, swelling of feet/ankles, lightheadedness, syncope, pre-syncope, dyspnea on exertion, orthopnea, leg pain with exertion or acrocyanosis Resp: Denies: dyspnea, productive cough, non-productive cough, wheezing, pain on inspiration, hemoptysis or chest congestion GI: Denies: abdominal pain, nausea, vomiting, heartburn or diarrhea : Denies: flank pain, difficulty urinating or dysuria Musc: Denies: neck pain, back pain, extremity pain, extremity swelling or joint pain Skin/Breast: Denies: rash Neuro: Denies: headache(s), numbness in extremities, weakness in extremities, sensory changes or dizziness FOR[facility]LY [facility], [facility] ED PFSH: Social History Smoking and tobacco status: never smoked Alcohol intake: current Alcohol intake frequency: holidays/special occasions only Substance/Drug Use: never Physical Exam Const: COMMON NORMALS: no acute distress, average body habitus, patient oriented x3, no limitations, healthy appearing, alert and well nourished GENERAL APPEARANCE: cooperative ORIENTATION/CONSCIOUSNESS: Yes awake, Yes oriented to person, Yes oriented to place and Yes oriented to time HENMT: COMMON NORMALS: normocephalic and atraumatic HEAD & SCALP: normal to inspection, normocephalic and atraumatic Neck/C-Spine: COMMON NORMALS: full ROM, no lymphadenopathy, supple and no meningeal signs Chest: COMMONS NORMALS: normal inspection of the chest Resp: COMMON NORMALS: normal respiratory effort and clear to auscultation bilaterally AUSCULTATION: clear to auscultation bilaterally Cardio: COMMON NORMALS: regular rate RATE: regular rate RHYTHM: abnormal rhythm with ectopic beats GI: COMMON NORMALS: Normal to inspection, nondistended, normoactive bowel sounds present, Soft to palpation, non-tender, No hepatosplenomegaly present and no masses PALPATION: Yes Soft to palpation and Yes No hepatosplenomegaly present : COMMON NORMALS: Yes no CVA tenderness BLADDER/KIDNEY EXAM: Yes no CVA tenderness Back/Pelvis: COMMON NORMALS: no CVA tenderness and thoracic and lumbar spine normal to inspection Extremity: COMMON NORMALS: normal to inspection NARRATIVE EXTREMITY EXAM: dialysis fistula L UE Neuro: TIAN COMA SCALE: document GCS findings [place] coma scale eye opening: Spontaneous [place] coma scale verbal response: Orientated Tian coma scale motor response: Obey commands Tian coma scale total score: 15 COMMON NORMALS: patient oriented x3, CN's II-XII intact bilaterally, moves all extremities, no focal motor deficits and no sensory deficits noted SENSORIUM/ORIENTATION: Yes alert, Yes oriented to person, Yes oriented to place and Yes oriented to time MENINGEAL SIGNS: Yes no meningeal signs Skin: COMMON NORMALS: no rashes or lesions noted GENERAL SKIN EXAM: no rashes or lesions noted Course Vital Signs: Vital signs: Vital Signs Pulse Rate 71 07/27/23 18:15 Respiratory Rate 15 07/27/23 17:30 Blood Pressure 169/86 07/27/23 18:15 Pulse Oximetry 94 07/27/23 18:15 Oxygen Delivery Me thod Room Air 07/27/23 17:30 MDM - Arrhythmia/Palpitations Lab Data 07/27/23 15:02 07/27/23 15:02 Laboratory Results WBC 4.73 10^3/uL (3.29-11.43) 07/27/23 15:02 RBC 4.09 10^6/uL (3.85-5.65) 07/27/23 15:02 Hgb 12.50 g/dL (11.27-16.99) 07/27/23 15:02 Hct 37.3 % (37-53) 07/27/23 15:02 MCV 91.2 fl (82-101) 07/27/23 15:02 MCH 30.6 pg (27-33) 07/27/23 15:02 MCHC 33.5 g/dL (30-55) 07/27/23 15:02 RDW 13.2 % (12.1-15.1) 07/27/23 15:02 Plt Count 168 10^3/cmm (157-399) 07/27/23 15:02 MPV 8.9 fL (7.4-10.4) 07/27/23 15:02 Neut % (Auto) 46.7 % 07/27/23 15:02 Lymph % (Auto) 34.5 % 07/27/23 15:02 Stark % (Auto) 11.2 % 07/27/23 15:02 Eos % (Auto) 6.3 % 07/27/23 15:02 Baso % (Auto) 1.1 % 07/27/23 15:02 Neut # (Auto) 2.21 10^3/uL (1.8-7.7) 07/27/23 15:02 Lymph # (Auto) 1.6 10^3/uL (0.8-4.8) 07/27/23 15:02 Stark # (Auto) 0.5 10^3/uL (0.2-0.9) 07/27/23 15:02 Eos # (Auto) 0.3 10^3/uL (0.0-0.8) 07/27/23 15:02 Baso # (Auto) 0.1 10^3/uL (0.0-0.1) 07/27/23 15:02 Nucleated RBC % (auto) 0 % 07/27/23 15:02 Nucleated RBCs # 0.0 /100WBC 07/27/23 15:02 Sodium 139 mmol/L (136-145) 07/27/23 15:02 Potassium 3.9 mmol/L (3.5-5.1) 07/27/23 15:02 Chloride 95 mmol/L (98-107) L 07/27/23 15:02 Carbon Dioxide 37 mmol/L (22-29) H 07/27/23 15:02 Anion Gap 10.9 (5-19) 07/27/23 15:02 BUN 8 mg/dL (6-20) 07/27/23 15:02 Creatinine 3.9 mg/dL (0.7-1.2) H 07/27/23 15:02 GFR Calculation 16.0 mL/min (90-130) L 07/27/23 15:02 Glucose 85 mg/dL (65-115) 07/27/23 15:02 Calculated Osmolality 286 mOsm/kg (285-295) 07/27/23 15:02 Calcium 9.0 mg/dL (8.5-10.5) 07/27/23 15:02 Total Bilirubin 0.4 mg/dL (0.15-1.2) 07/27/23 15:02 AST 13 U/L (0-40) 07/27/23 15:02 ALT 15 U/L (0-41) 07/27/23 15:02 Alkaline Phosphatase 74 U/L (40-130) 07/27/23 15:02 Troponin T Baseline 42 ng/L (0-15) H 07/27/23 15:02 Troponin T 120 Minute 39.92 ng/L (0-15) H 07/27/23 17:28 Delta Troponin T -2.08 ABS# (0-10) L 07/27/23 17:28 Total Protein 7.1 g/dL (6.6-8.7) 07/27/23 15:02 Albumin 4.5 g/dL (3.5-5.2) 07/27/23 15:02 Globulin 2.6 g/dL (1.3-4.6) 07/27/23 15:02 Discharge Plan Discharge Patient Disposition: Home Clinical Impression: Premature contractions, supraventricular Condition: Stable Prescriptions: No Action carvedilol 25 mg tablet 25 mg PO BID acetaminophen [Tylenol Extra Strength] 500 mg Tablet 1,000 mg PO Q6H PRN (Reason: Pain) loratadine [Claritin] 10 mg Tablet 10 mg PO BEDTIME RenaPlex-D 800 mcg-12.5 mg -2,000 unit tablet 1 tab PO BEDTIME amlodipine 5 mg tablet 5 mg PO DAILY lidocaine-prilocaine 2.5-2.5 % cream See Rx Instructions .ROUTE .COMPLEX Rx Instructions: APPLY SMALL AMOUNT TO ACCESS SITE (AVF) 1 HOUR BEFORE DIALYSIS. COVER WITH OCCLUSIVE DRESSING (SARAN WRAP) sodium bicarbonate 650 mg tablet 650 mg PO TID Discharge Orders: Discharge ED (Routine); Ordered 07/27/23 Ordered By: Shahzad Dyson Referrals: Toya Garcia, RN [Primary Care Provider] - Discharge Diet: Usual diet Discharge Activity: Increase activity as tolerated Patient Instructions: Premature Atrial Contractions (ED) Activity Restrictions/Additional Instructions: Home and rest. Continue with routine care. Follow-up with primary care for further instructions. Return to ER for worsening symptoms such as increased shortness of breath, severe chest pain, or new concerns. Sign Out Sign Out Data: Patient Sign Out occurred on 07/27/23 at 17:02. Patient's care was discussed, and care was transferred from to Shahzad Dyson. Coding Level of Care Code ED Concierge for Chenteg Adi Documented by User: AUDIE Mcginnis 07/27/23 18:26 HPI - Arrhythmia/Palpitations General: Chief Complaint: Arrhythmia/Palpitations Stated Complaint: IRREGULAR HR Time Seen by Provider: 07/27/23 14:51 PFSH ED PFSH: Social History Smoking and tobacco status: never smoked Alcohol intake: current Alcohol intake frequency: holidays/special occasions only Substance/Drug Use: never Physical Exam Neuro: TIAN COMA SCALE: document GCS findings [place] coma scale total score: 15 Course Vital Signs: Vital signs: Vital Signs Pulse Rate 71 07/27/23 18:15 Respiratory Rate 15 07/27/23 17:30 Blood Pressure 169/86 07/27/23 18:15 Pulse Oximetry 94 07/27/23 18:15 Oxygen Delivery Me thod Room Air 07/27/23 17:30 MDM - Arrhythmia/Palpitations Medical Decision Making Patient was referred to the ER from dialysis for irregular rhythm after treatment. Patient appears nontoxic. Respirations are even lungs are clear to auscultation. Differential diagnosis includes ACS, electrolyte disturbance, anxiety. EKG showed PACs at first that resolved by the second hour. Troponin showed no changes. Remainder of labs were unremarkable. Except for creatinine 3.9. Reviewed exam with patient recommended follow-up with cardiology due to history of CAD. Patient reported understanding and agreed to plan. Patient was stable and discharged home. Lab Data 07/27/23 15:02 07/27/23 15:02 Laboratory Results WBC 4.73 10^3/uL (3.29-11.43) 07/27/23 15:02 RBC 4.09 10^6/uL (3.85-5.65) 07/27/23 15:02 Hgb 12.50 g/dL (11.27-16.99) 07/27/23 15:02 Hct 37.3 % (37-53) 07/27/23 15:02 MCV 91.2 fl (82-101) 07/27/23 15:02 MCH 30.6 pg (27-33) 07/27/23 15:02 MCHC 33.5 g/dL (30-55) 07/27/23 15:02 RDW 13.2 % (12.1-15.1) 07/27/23 15:02 Plt Count 168 10^3/cmm (157-399) 07/27/23 15:02 MPV 8.9 fL (7.4-10.4) 07/27/23 15:02 Neut % (Auto) 46.7 % 07/27/23 15:02 Lymph % (Auto) 34.5 % 07/27/23 15:02 Stark % (Auto) 11.2 % 07/27/23 15:02 Eos % (Auto) 6.3 % 07/27/23 15:02 Baso % (Auto) 1.1 % 07/27/23 15:02 Neut # (Auto) 2.21 10^3/uL (1.8-7.7) 07/27/23 15:02 Lymph # (Auto) 1.6 10^3/uL (0.8-4.8) 07/27/23 15:02 Stark # (Auto) 0.5 10^3/uL (0.2-0.9) 07/27/23 15:02 Eos # (Auto) 0.3 10^3/uL (0.0-0.8) 07/27/23 15:02 Baso # (Auto) 0.1 10^3/uL (0.0-0.1) 07/27/23 15:02 Nucleated RBC % (auto) 0 % 07/27/23 15:02 Nucleated RBCs # 0.0 /100WBC 07/27/23 15:02 Sodium 139 mmol/L (136-145) 07/27/23 15:02 Potassium 3.9 mmol/L (3.5-5.1) 07/27/23 15:02 Chloride 95 mmol/L (98-107) L 07/27/23 15:02 Carbon Dioxide 37 mmol/L (22-29) H 07/27/23 15:02 Anion Gap 10.9 (5-19) 07/27/23 15:02 BUN 8 mg/dL (6-20) 07/27/23 15:02 Creatinine 3.9 mg/dL (0.7-1.2) H 07/27/23 15:02 GFR Calculation 16.0 mL/min (90-130) L 07/27/23 15:02 Glucose 85 mg/dL (65-115) 07/27/23 15:02 Calculated Osmolality 286 mOsm/kg (285-295) 07/27/23 15:02 Calcium 9.0 mg/dL (8.5-10.5) 07/27/23 15:02 Total Bilirubin 0.4 mg/dL (0.15-1.2) 07/27/23 15:02 AST 13 U/L (0-40) 07/27/23 15:02 ALT 15 U/L (0-41) 07/27/23 15:02 Alkaline Phosphatase 74 U/L (40-130) 07/27/23 15:02 Troponin T Baseline 42 ng/L (0-15) H 07/27/23 15:02 Troponin T 120 Minute 39.92 ng/L (0-15) H 07/27/23 17:28 Delta Troponin T -2.08 ABS# (0-10) L 07/27/23 17:28 Total Protein 7.1 g/dL (6.6-8.7) 07/27/23 15:02 Albumin 4.5 g/dL (3.5-5.2) 07/27/23 15:02 Globulin 2.6 g/dL (1.3-4.6) 07/27/23 15:02 All radiology interpretation(s) finalized by discharge EKG Data EKG 2: EKG interpretation date: 07/27/23 EKG interpretation time: 17:05 Prior EKG tracings: available for review Interpretation: EKG shows a sinus rhythm with a regular rate at [address] elevation or ectopy is noted. When compared to prior exam 2 hours ago PACs are not present. Computer generated interpretation: Sinus rhythm, normal EKG, unconfirmed report Discharge Plan Discharge Patient Disposition: Home Clinical Impression: Premature contractions, supraventricular Condition: Stable Prescriptions: No Action carvedilol 25 mg tablet 25 mg PO BID acetaminophen [Tylenol Extra Strength] 500 mg Tablet 1,000 mg PO Q6H PRN (Reason: Pain) loratadine [Claritin] 10 mg Tablet 10 mg PO BEDTIME RenaPlex-D 800 mcg-12.5 mg -2,000 unit tablet 1 tab PO BEDTIME amlodipine 5 mg tablet 5 mg PO DAILY lidocaine-prilocaine 2.5-2.5 % cream See Rx Instructions .ROUTE .COMPLEX Rx Instructions: APPLY SMALL AMOUNT TO ACCESS SITE (AVF) 1 HOUR BEFORE DIALYSIS. COVER WITH OCCLUSIVE DRESSING (SARAN WRAP) sodium bicarbonate 650 mg tablet 650 mg PO TID Discharge Orders: Discharge ED (Routine); Ordered 07/27/23 Ordered By: Shahzad Dyson Referrals: Toya Garcia, RN [Primary Care Provider] - Discharge Diet: Usual diet Discharge Activity: Increase activity as tolerated Patient Instructions: Premature Atrial Contractions (ED) Activity Restrictions/Additional Instructions: Home and rest. Continue with routine care. Follow-up with primary care for further instructions. Return to ER for worsening symptoms such as increased shortness of breath, severe chest pain, or new concerns. Sign Out Sign Out Data: Patient Sign Out occurred on 07/27/23 at 17:02. Patient's care was discussed, and care was transferred from to Shahzad Dyson. Coding Level of Care Code ED Concierge for Roma Joshi
[2023-07-27 15:33] LABS: Troponin(5th) Baseline 42 ng/L (0-15)
[2023-07-27 15:35] LABS: Alanine Aminotransferase 15 U/L (0-41); Albumin Level 4.5 g/dL (3.5-5.2); Alkaline Phosphatase 74 U/L (40-130); Anion Gap 10.9 (5-19); Aspartate Amino Transferase 13 U/L (0-40); Blood Urea Nitrogen 8 mg/dL (6-20); Carbon Dioxide 37 mmol/L (22-29); Chloride 95 mmol/L (98-107); Globulin 2.6 g/dL (1.3-4.6); Glucose 85 mg/dL (65-115); Osmolality Calculated 286 mOsm/kg (285-295); Potassium 3.9 mmol/L (3.5-5.1); Sodium 139 mmol/L (136-145); Total Bilirubin 0.4 mg/dL (0.15-1.2); Total Protein 7.1 g/dL (6.6-8.7)
--- NOTE | 2023-07-27 16:54 | ECG_ITS ---
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 Measurements Intervals [place] Rate: 61 P: 20 [place]: 141 QRS: 61 QRSD: 91 T: 68 QT: 434 QTc: 440 Interpretive Statements SINUS RHYTHM Compared to ECG 07/27/2023 15:03:52 No significant changes Electronically Signed On 07-27-2023 21:34:30 CDT by Rhea Gonzales M.D. [id number]
[2023-07-27 18:09] LABS: Troponin 5 2HR 39.92 ng/L (0-15)
[2023-07-27 18:11] LABS: Troponin 5 2HR Delta -2.08 ABS# (0-10)
--- NOTE | 2023-07-28 08:16 | PC.SOCIAL ---
Cardiology Referral Referral to cardiology at this time. Clinic will contact patient with appt date/time.
== END 2023-07-27 18:36 | disposition home or self-care (01) ==
PROVIDERS: Emergency Medicine; Emergency Provider Nurse Practitioner Family
DX: I49.1 Atrial premature depolarization (principal)
CPT/HCPCS: 36415; 71045; 80053; 84484; 85025; 93005; 99285

== ENCOUNTER → 2023-08-20 11:56 | Outpatient (BNVA) | payer MEDICARE, SELFPAY | PROVIDERS: Referring Provider Physician Assistant; Visit Provider Internal Medicine | DX: I25.10 Atherosclerotic heart disease of native coronary artery without angina pectoris (principal); I10 Essential (primary) hypertension | CPT/HCPCS: 99204 ==

== ENCOUNTER 2023-09-01 14:40 | Outpatient (CLI) | payer MEDICARE, SELFPAY ==
--- NOTE | 2023-09-01 15:00 | USCV_ITS ---
Phil Goss Age: 58 Gender: M : 1965 Exam Date: 09/01/2023 15:06 Ordering Phys: Edward Mojica M.D ([email or web address]) Technologist: CT Exam Location[place] [facility] [place]ication: cp BP: 113 / 70 HR: 57 Rhythm: Sinus Technical Quality: Adequate MEASUREMENTS (Male / Female) Normal Values 2D ECHO LV Chamber Size 4.8 cm RV Chamber Size 4.6 cm LVOT Diameter 2.6 cm LV Ejection Fraction MOD 2C 50.9 % LV Ejection Fraction 2C AL 50.6 % LA Diameter 3.9 cm LA Width 4.1 cm LA Height 5.4 cm RA Width 4.2 cm RA Height 5.1 cm Aorta at Sinotubular Diameter 2.8 cm M-MODE Aortic Annulus Diameter 4.0 cm LA Ao Ratio MM 1.0 MV E Point Septal Separation 0.7 cm DOPPLER AV Peak Velocity 160.0 cm/s LVOT Peak Velocity 126.0 cm/s AV Area Cont Eq vti 4.2 cm squared AV Area Cont Eq pk 4.1 cm squared MV Peak Velocity 89.0 cm/s MV E' Velocity 13.0 cm/s TR Peak Velocity 113.0 cm/s TR Peak Gradient 5.1 mmHg TV Peak E Velocity 59.0 cm/s Right Atrial Pressure 3.0 mmHg Pulmonary Artery Systolic Pressu 8.1 mmHg PV Peak Velocity 106.0 cm/s FINDINGS Left Ventricle Left ventricle is normal in size. LV systolic function is normal with EF of 55 to 60%. No regional wall motion abnormalities are seen. Right Ventricle Normal in size and function Right Atrium Normal in size Left Atrium Normal in size Mitral Valve Structurally normal mitral valve. Mild mitral regurgitation Aortic Valve Structurally normal aortic valve. No significant stenosis or regurgitaiton. Tricuspid Valve Mild tricuspid regurgitation. Insufficient TR jet to calculate RVSP Pulmonic Valve Not well visualized Pericardium Normal Aorta Normal in size IVC Appears to be normal CONCLUSIONS LV systolic function is normal with EF 55 to 60%. Mild mitral regurgitation. Mild tricuspid regurgitation No comparison studies are available Edward Mojica MD (Electronically Signed) Final Date: 05 September 2023 11:32 S
== END 2023-09-01 14:41 | disposition home or self-care (01) ==
LOC: RAD 14:42
PROVIDERS: Visit Provider Internal Medicine
DX: R07.9 Chest pain, unspecified (principal); I08.1 Rheumatic disorders of both mitral and tricuspid valves
CPT/HCPCS: 93306

== ENCOUNTER 2024-02-13 15:43 | Emergency (ER) | payer MEDICARE, SELFPAY ==
[2024-02-13 15:49] VITALS: BMI 35.3
[2024-02-13 16:15] VITALS: BP 146/84; PULSE 74; RESP 16; TEMP 36.6; O2SAT 99
[2024-02-13 16:30] VITALS: BP 137/73; PULSE 81; RESP 16; O2SAT 99
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
[2024-02-13 17:00] VITALS: BP 144/84; PULSE 74; RESP 16; O2SAT 100
[2024-02-13 17:16] VITALS: RESP 16; O2SAT 100
[2024-02-13] MEDS: morphine 4 mg/mL SDV 1 mL IVP (17:16)
[2024-02-13] MEDS: dexamethasone 10 mg/mL INJ IVP (17:16)
[2024-02-13] MEDS: ketorolac 30 mg/mL INJ IVP (17:16)
[2024-02-13] MEDS: orphenadrine 30 mg/mL Inj 2 mL 60 MG IVP (17:17)
--- NOTE | 2024-02-13 17:33 | CTR_ITS ---
PROCEDURE INFORMATION: Exam: CT Cervical Spine Without Contrast Exam date and time: 02/13/2024 5:45 PM Age: 58 years old Clinical indication: Neck pain; Additional info: Cervical radiculopatht TECHNIQUE: Imaging protocol: Computed tomography of the cervical spine without contrast. Radiation optimization: All CT scans at this facility use at least one of these dose optimization techniques: automated exposure control; mA and/or kV adjustment per patient size (includes targeted exams where dose is matched to clinical indication); or iterative reconstruction. COMPARISON: CT head wo con* [id number] 04/01/2021 3:51 PM RADIATION DOSE METRICS: Total DLP (mGy-cm): 299.37 FINDINGS: Bones/joints: Mild straightening of the normal cervical lordosis. Slight levoscoliosis. Alignment is otherwise intact. Vertebral body heights are well-maintained. No evidence of acute fracture. Mild multilevel degenerative changes. Lungs: Lung apices are normal. Soft tissues: The soft tissues are within normal limits. CT/CT cervical spin wo con* [id number] IMPRESSION: No evidence of acute fracture.
[2024-02-13 18:00] VITALS: BP 136/68; PULSE 74; RESP 17; O2SAT 94
[2024-02-13 19:22] VITALS: BP 157/83; PULSE 69; RESP 15; O2SAT 96
== END 2024-02-13 19:21 | disposition home or self-care (01) ==
PROVIDERS: Emergency Provider Nurse Practitioner Family
DX: S16.1XXA Strain of muscle, fascia and tendon at neck level, initial encounter (principal); Z79.82 Long term (current) use of aspirin; X58.XXXA Exposure to other specified factors, initial encounter
CPT/HCPCS: 72125; 96374; 96375; 99285; J1100; J1885; J2270; J2360

== ENCOUNTER 2024-02-19 11:00 | Emergency (ER) | payer MEDICARE, SELFPAY ==
[2024-02-19 11:00] VITALS: BP 161/81; PULSE 73; RESP 16; TEMP 36.4; O2SAT 99; BMI 30.5
--- NOTE | 2024-02-19 11:40 | W.ED.HA ---
HPI - Headache General: Chief Complaint: Headache Stated Complaint: headache,stiff neck Time Seen by Provider: 02/19/24 11:22 History of Present Illness: 58-year-old man with a history of end-stage renal disease on dialysis, hypertension and hyperlipidemia who presents to the emergency room with a continued headache for about a week now. He has been to the emergency room at [facility], he has been to his primary provider, and he has been to the emergency room here. His primary put him on some migraine medication (sumatriptan). He has also been taking some muscle relaxer on occasion. No focal motor deficits. No altered mental status. No fevers. Review of Systems Narrative: Constitutional symptoms: Negative except as documented in HPI. Skin symptoms: Negative except as documented in HPI. Eye symptoms: Negative except as documented in HPI. ENMT symptoms: Negative except as documented in HPI. Respiratory symptoms: Negative except as documented in HPI. Cardiovascular symptoms: Negative except as documented in HPI. Gastrointestinal symptoms: Negative except as documented in HPI. Genitourinary symptoms: Negative except as documented in HPI. Musculoskeletal symptoms: Negative except as documented in HPI. Neurologic symptoms: Negative except as documented in HPI. Psychiatric symptoms: Negative except as documented in HPI. Endocrine symptoms: Negative except as documented in HPI. PFS ED PFSH: Social History Smoking and tobacco/nicotine status: never used tobacco/nicotine Alcohol intake: current Alcohol intake frequency: holidays/special occasions only Substance/Drug Use: never Physical Exam Narrative: EXAM NARRATIVE: General: Alert, no acute distress. Skin: Warm, dry. Head: Normocephalic, atraumatic. Neck: Supple, trachea midline. Eye: Extraocular movements are intact. Ears, nose, mouth and throat: mucosa moist. Cardiovascular: Regular, Normal peripheral perfusion. Respiratory: Lungs are clear to auscultation, respirations are non-labored, breath sounds are equal, Symmetrical chest wall expansion. Gastrointestinal: Soft, Nontender, Non distended, Normal bowel sounds. Musculoskeletal: Normal ROM, no deformity. Neurological: Alert and oriented, No focal neurological deficit observed. Psychiatric: Cooperative, appropriate mood & affect. Course Vital Signs: Vital signs: Vital Signs Temperature 97.6 F 02/19/24 11:00 Pulse Rate 62 04/12/24 14:01 Respiratory Rate 16 02/19/24 15:03 Blood Pressure 161/81 02/19/24 11:00 Pulse Oximetry 97 02/19/24 15:03 Oxygen Delivery Me thod Nasal Cannula 02/19/24 14:01 Oxygen Flow Rate 4 02/19/24 14:01 MDM - Headache Medical Decision Making Medical decision making: Differential diagnosis including but not limited to and based on the above HPI, review of systems and physical exam: In this patient with a posterior headache that is more on the left side than the right initially checking some basic lab work as he is on dialysis. Also ordered a noncontrast head CT. Consultation with neurology and they recommend a contrasted CT. Orders placed to evaluate differential diagnosis based on the above differential, HPI and physical exam Lab Review: Laboratory results were reviewed and interpreted by myself the emergency room physician. BUN and creatinine are elevated at 50 and 6.2 which is expected in this dialysis patient did not receive full dialysis today. More importantly potassium is not overtly elevated at only 5.2. He does not have any leukocytosis. No anemia. Consultation: Dr. Palmer with neurology. He recommends IV Depacon and 250 mg Depakote twice daily. He can follow-up with him on Thursday. Consultation: I spoke with dialysis clinic and given that the patient did not get dialysis today and that he received contrast today I have requested dialysis tomorrow and they have a spot. This will be at 10:[address] head: No acute intracranial process. no intracranial hemorrhage, no evidence of infarct. no evidence of acute fracture.This was reviewed and interpreted by myself the ER physician. CTA of the head and neck also showed no severe abnormalities. Some mild carotid narrowing that would require no intervention at this time and definitely would not cause the symptoms that the patient is having. Reexamination: Patient initially received Reglan and Benadryl and Norflex with no improvement. Then Dilaudid. Then Depacon. Also some morphine. He finally has mild improvement and is able to lay down in bed. No altered mental status. No focal motor deficits. I discussed with his that this almost definitely is not bacterial meningitis. And if it were viral, this would likely be a send out test and would not alter our treatment at this time. Lab Data 02/19/24 11:43 02/19/24 11:[address] 02/19/24 14:19 IMPRESSION: No acute intracranial abnormality. Head/Neck CTA 02/19/24 14:19 IMPRESSION: No large vessel stenosis or occlusion. IMPRESSION: Mild stenosis at the origins of the internal carotid arteries. No severe stenosis or occlusion. REFERENCES: NASCET CRITERIA. The degree of stenosis in the cervical segment of the internal carotid artery is based on NASCET criteria. Normal is no stenosis. Mild is less than 50% stenosis. Moderate is 50-69% stenosis. Severe is 70% to 99% stenosis. Total occlusion is no detectable patent lumen. Laboratory Results WBC 7.43 10^3/uL (3.29-11.43) 02/19/24 11:43 RBC 4.38 10^6/uL (3.85-5.65) 02/19/24 11:43 Hgb 13.30 g/dL (11.27-16.99) 02/19/24 11:43 Hct 39.8 % (37-53) 02/19/24 11:43 MCV 90.9 fl (82-101) 02/19/24 11:43 MCH 30.4 pg (27-33) 02/19/24 11:43 MCHC 33.4 g/dL (30-55) 02/19/24 11:43 RDW 12.8 % (12.1-15.1) 02/19/24 11:43 Plt Count 204 10^3/cmm (157-399) 02/19/24 11:43 MPV 9.1 fL (7.4-10.4) 02/19/24 11:43 Neut % (Auto) 66.1 % 02/19/24 11:43 Lymph % (Auto) 17.9 % 02/19/24 11:43 [place] % (Auto) 8.3 % 02/19/24 11:43 Eos % (Auto) 6.6 % 02/19/24 11:43 Baso % (Auto) 0.7 % 02/19/24 11:43 Neut # (Auto) 4.91 10^3/uL (1.8-7.7) 02/19/24 11:43 Lymph # (Auto) 1.3 10^3/uL (0.8-4.8) 02/19/24 11:43 [place] # (Auto) 0.6 10^3/uL (0.2-0.9) 02/19/24 11:43 Eos # (Auto) 0.5 10^3/uL (0.0-0.8) 02/19/24 11:43 Baso # (Auto) 0.1 10^3/uL (0.0-0.1) 02/19/24 11:43 Nucleated RBC % (auto) 0 % 02/19/24 11:43 Nucleated RBCs # 0.0 /100WBC 02/19/24 11:43 Sodium 133 mmol/L (136-145) L 02/19/24 11:43 Potassium 5.2 mmol/L (3.5-5.1) H 02/19/24 11:43 Chloride 97 mmol/L (98-107) L 02/19/24 11:43 Carbon Dioxide 24 mmol/L (22-29) 02/19/24 11:43 Anion Gap 17.2 (5-19) 02/19/24 11:43 BUN 50 mg/dL (6-20) H 02/19/24 11:43 Creatinine 6.2 mg/dL (0.7-1.2) H* 02/19/24 11:43 GFR Calculation 9.3 mL/min (90-130) L 02/19/24 11:43 Glucose 97 mg/dL (65-115) 02/19/24 11:43 Calculated Osmolality 289 mOsm/kg (285-295) 02/19/24 11:43 Calcium 9.7 mg/dL (8.5-10.5) 02/19/24 11:43 Total Bilirubin 0.3 mg/dL (0.15-1.2) 02/19/24 11:43 AST 19 U/L (0-40) 02/19/24 11:43 ALT 18 U/L (0-41) 02/19/24 11:43 Alkaline Phosphatase 98 U/L (40-130) 02/19/24 11:43 Total Protein 8.3 g/dL (6.6-8.7) 02/19/24 11:43 Albumin 4.1 g/dL (3.5-5.2) 02/19/24 11:43 Globulin 4.2 g/dL (1.3-4.6) 02/19/24 11:43 Influenza Type A Ag negative (Negative) 02/19/24 11:43 Influenza Type B Ag negative (Negative) 02/19/24 11:43 SARS-CoV-2 Ag (Rapid) negative (Negative) 02/19/24 11:43 All radiology interpretation(s) finalized by discharge Other Data Assessment and plan: Headache. End-stage renal disease on dialysis. -Dialysis was arranged for tomorrow. -Patient has had a very refractory headache. He has received Benadryl, Reglan, Norflex. Then Dilaudid and Zofran. Then Depakote. Then morphine. He finally has fairly good control of his headache. -Neurology was consulted. Patient has an appoint with him on Thursday. CTA of the head was done which showed no dissection. - Discharged home - Discussed findings and plan with patient. Answered any questions. - All laboratory values were reviewed and interpreted personally by myself, the ER physician - All imaging was reviewed and interpreted personally by myself, the ER physician. - Evaluation and treatment of this problem were appropriate in the emergency setting Discharge Plan Discharge Patient Disposition: Home Clinical Impression: Headache Condition: Stable Prescriptions: New Depakote 250 mg tablet,delayed release (DR/EC) 250 mg PO BID Qty: 60 0RF tramadol 50 mg tablet 50 mg PO Q8H PRN (Reason: pain) Qty: 20 0RF No Action cyclobenzaprine 10 mg tablet 10 mg PO TID PRN (Reason: muscle spasms) sumatriptan succinate [Imitrex] 100 mg tablet See Rx Instructions PO .COMPLEX Qty: 14 0RF Rx Instructions: take 1 tab at onset of headache; if no relief, may repeat 1 tab after at least 2 hrs; max = 2 tabs/24 hrs PO aspirin [Adult Low Dose Aspirin] 81 mg tablet,delayed release (DR/EC) 81 mg PO DAILY Qty: 90 3RF atorvastatin 40 mg tablet 40 mg PO DAILY Qty: 90 3RF carvedilol 25 mg tablet 25 mg PO BID acetaminophen [Tylenol Extra Strength] 500 mg Tablet 1,000 mg PO Q6H PRN (Reason: Pain) RenaPlex-D 800 mcg-12.5 mg -2,000 unit tablet 1 tab PO BEDTIME loratadine [Claritin] 10 mg tablet 25 mg PO BEDTIME amlodipine 5 mg tablet 5 mg PO DAILY lidocaine-prilocaine 2.5-2.5 % cream See Rx Instructions .ROUTE .COMPLEX Rx Instructions: APPLY SMALL AMOUNT TO ACCESS SITE (AVF) 1 HOUR BEFORE DIALYSIS. COVER WITH OCCLUSIVE DRESSING (SARAN WRAP) sodium bicarbonate 650 mg tablet 650 mg PO TID hydrocodone-acetaminophen 5-325 mg tablet 1 tab PO Q6H PRN (Reason: pain) Qty: 10 0RF Discharge Orders: Discharge ED (Routine); Ordered 02/19/24 Ordered By: Alberta Jose Referrals: Benjamin Palmer MD [Physician] - (Please go to dialysis tomorrow at 10:50 AM. Please arrive at Dr. Palmer's office on Thursday at 8 AM. Please try to reschedule dialysis for Thursday or Thursday if you need to.) Sari Garcia MD [Primary Care Provider] - (You have been screened and evaluated and felt safe for discharge. Health conditions do change or evolve sometimes and as such it is important that you follow up with your Primary Doctor to be re checked, 3-5 days is a general good time frame for follow up. You are always welcome to return to the ED for re assessment if your symptoms are worsening or you have new concerns) Discharge Diet: Usual diet Discharge Activity: Increase activity as tolerated Patient Instructions: Headache, Opioid Safety, Pain Management Coding Level of Care Code ED [employer] Manager for Roma Joshi
[2024-02-19 11:49] LABS: Basophils # 0.1 10^3/uL (0.0-0.1); Basophils % 0.7 %; Eosinophils # 0.5 10^3/uL (0.0-0.8); Eosinophils % 6.6 %; Hematocrit 39.8 % (37-53); Lymphocytes # 1.3 10^3/uL (0.8-4.8); Lymphocytes % 17.9 %; Mean Corpuscular HGB Conc 33.4 g/dL (30-55); Mean Corpuscular Hemoglobin 30.4 pg (27-33); Mean Corpuscular Volume 90.9 fl (82-101); Mean Platelet Volume 9.1 fL (7.4-10.4); Monocytes # 0.6 10^3/uL (0.2-0.9); Monocytes % 8.3 %; Neutrophils # 4.91 10^3/uL (1.8-7.7); Neutrophils % 66.1 %; Nucleated Red Blood Cells % 0 %; Platelet Count 204 10^3/cmm (157-399); Red Blood Count 4.38 10^6/uL (3.85-5.65); Red Cell Distribution Width 12.8 % (12.1-15.1); White Blood Count 7.43 10^3/uL (3.29-11.43)
[2024-02-19] MEDS: diphenhydrAMINE 50 mg/mL SDV 1mL 25 MG IVP (12:02)
[2024-02-19] MEDS: metoclopramide 5 mg/mL SDV 2 mL 10 MG IVP (12:03)
[2024-02-19] MEDS: orphenadrine 30 mg/mL Inj 2 mL 60 MG IVP (12:03)
[2024-02-19 12:05] LABS: Alanine Aminotransferase 18 U/L (0-41); Albumin Level 4.1 g/dL (3.5-5.2); Alkaline Phosphatase 98 U/L (40-130); Anion Gap 17.2 (5-19); Aspartate Amino Transferase 19 U/L (0-40); Blood Urea Nitrogen 50 mg/dL (6-20); Calcium 9.7 mg/dL (8.5-10.5); Carbon Dioxide 24 mmol/L (22-29); Chloride 97 mmol/L (98-107); Creatinine Clr Calc Pharmacy 17.7135; Globulin 4.2 g/dL (1.3-4.6); Glomerular Filtration Rate 9.3 mL/min (90-130); Glucose 97 mg/dL (65-115); Influenza A by IFA negative (Negative); Influenza B by IFA negative (Negative); Osmolality Calculated 289 mOsm/kg (285-295); Potassium 5.2 mmol/L (3.5-5.1); Sodium 133 mmol/L (136-145); Total Bilirubin 0.3 mg/dL (0.15-1.2); Total Protein 8.3 g/dL (6.6-8.7)
[2024-02-19 12:06] LABS: SARS Covid-2 Antigen negative (Negative)
[2024-02-19] MEDS: dexamethasone 10 mg/mL INJ IVP (12:29)
[2024-02-19 12:39] VITALS: PULSE 72; O2SAT 88
[2024-02-19] MEDS: ondansetron 2 mg/ML SDV 2 mL 4 MG IVP ×2 (12:45→15:03)
[2024-02-19 12:46] VITALS: RESP 16; O2SAT 92
[2024-02-19] MEDS: HYDROmorphone 1 mg/mL INJ 1 mL IVP (12:46)
[2024-02-19 13:39] VITALS: PULSE 62; O2SAT 91
--- NOTE | 2024-02-19 13:55 | PC.NURSE ---
Per Dr. Jose I placed patient on 4 liters of oxygen to help with his headache.
[2024-02-19 14:01] VITALS: PULSE 62; O2SAT 97
--- NOTE | 2024-02-19 14:19 | CTR_ITS ---
PROCEDURE INFORMATION: Exam: CT Head Without Contrast Exam date and time: 02/19/2024 3:30 PM Age: 58 years old Clinical indication: Other: Headache; Additional info: Severe headache TECHNIQUE: Imaging protocol: Computed tomography of the head without contrast. Radiation optimization: All CT scans at this facility use at least one of these dose optimization techniques: automated exposure control; mA and/or kV adjustment per patient size (includes targeted exams where dose is matched to clinical indication); or iterative reconstruction. COMPARISON: CT head wo con* [id number] 04/01/2021 3:51 PM RADIATION DOSE METRICS: Total DLP (mGy-cm): 1199.58 FINDINGS: Brain: No hemorrhage. No edema. Mild diffuse cerebral atrophy and sequela of chronic small vessel ischemic disease. No mass effect. Cerebral ventricles: No ventriculomegaly. Paranasal sinuses: Visualized sinuses are unremarkable. No fluid levels. Mastoid air cells: Visualized mastoid air cells are well aerated. Bones/joints: Unremarkable. No acute fracture. Soft tissues: Unremarkable. CT/CT head wo con* [id number] IMPRESSION: No acute intracranial abnormality.
--- NOTE | 2024-02-19 14:19 | CTR_ITS ---
PROCEDURE INFORMATION: Exam: CTA Head With Contrast, Arteriography Exam date and time: 02/19/2024 3:33 PM Age: 58 years old Clinical indication: Other: Headache; Additional info: Severe headache TECHNIQUE: Imaging protocol: Computed tomographic angiography of the head with contrast. Exam focused on the arteries. 3D rendering (Not supervised by radiologist): MIP and/or 3D reconstructed images were created by the technologist. Radiation optimization: All CT scans at this facility use at least one of these dose optimization techniques: automated exposure control; mA and/or kV adjustment per patient size (includes targeted exams where dose is matched to clinical indication); or iterative reconstruction. Contrast material: OMNIPAQUE 350; Contrast volume: 100 ml; Contrast route: INTRAVENOUS (IV); COMPARISON: CT head wo con* [id number] 02/19/2024 3:30 PM RADIATION DOSE METRICS: Total DLP (mGy-cm): 773.91 FINDINGS: ANTERIOR CIRCULATION: Right internal carotid artery: Intracranial segment is patent with no significant stenosis. No aneurysm. Right middle cerebral artery: No occlusion or significant stenosis. No aneurysm. Right anterior cerebral artery: No occlusion or significant stenosis. No aneurysm. Left internal carotid artery: Intracranial segment is patent with no significant stenosis. No aneurysm. Left middle cerebral artery: No occlusion or significant stenosis. No aneurysm. Left anterior cerebral artery: No occlusion or significant stenosis. No aneurysm. POSTERIOR CIRCULATION: Right vertebral artery: No occlusion or significant stenosis. No aneurysm. Left vertebral artery: No occlusion or significant stenosis. No aneurysm. Basilar artery: No occlusion or significant stenosis. No aneurysm. Right posterior cerebral artery: No occlusion or significant stenosis. No aneurysm. Left posterior cerebral artery: No occlusion or significant stenosis. No aneurysm. Brain: No definite mass, mass effect, or midline shift. Cerebral ventricles: No ventriculomegaly. Bones/joints: Unremarkable. No acute fracture. Soft tissues: Unremarkable. PROCEDURE INFORMATION: Exam: CTA Neck With Contrast Exam date and time: 02/19/2024 3:33 PM Age: 58 years old Clinical indication: Other: Headache; Additional info: Severe headache TECHNIQUE: Imaging protocol: Computed tomographic angiography of the neck with contrast. Exam focused on the cervical segments of the vasculature. 3D rendering (Not supervised by radiologist): MIP and/or 3D reconstructed images were created by the technologist. Radiation optimization: All CT scans at this facility use at least one of these dose optimization techniques: automated exposure control; mA and/or kV adjustment per patient size (includes targeted exams where dose is matched to clinical indication); or iterative reconstruction. Contrast material: OMNIPAQUE 350; Contrast volume: 100 ml; Contrast route: INTRAVENOUS (IV); COMPARISON: CT cervical spin wo con* [id number] 02/13/2024 5:45 PM RADIATION DOSE METRICS: Total DLP (mGy-cm): 773.91 FINDINGS: Right common carotid artery: No stenosis. No dissection or occlusion. Right internal carotid artery: Mild stenosis of the origin. No dissection or occlusion. Right external carotid artery: No occlusion or stenosis of the origin. Left common carotid artery: No stenosis. No dissection or occlusion. Left internal carotid artery: Mild stenosis at the origin. No dissection or occlusion. Left external carotid artery: No occlusion or stenosis of the origin. Right vertebral artery: No stenosis. No dissection or occlusion. Left vertebral artery: No stenosis. No dissection or occlusion. Soft tissues: Normal. No significant soft tissue swelling. Bones/joints: No acute fracture. CT/CT angio headneck* [id number] IMPRESSION: No large vessel stenosis or occlusion. IMPRESSION: Mild stenosis at the origins of the internal carotid arteries. No severe stenosis or occlusion. REFERENCES: NASCET CRITERIA. The degree of stenosis in the cervical segment of the internal carotid artery is based on NASCET criteria. Normal is no stenosis. Mild is less than 50% stenosis. Moderate is 50-69% stenosis. Severe is 70% to 99% stenosis. Total occlusion is no detectable patent lumen.
[2024-02-19] MEDS: valproic acid inj 500 MG in sodium chloride 0.9% (plus) 50 ML 55 MG IV (15:00)
[2024-02-19 15:03] VITALS: RESP 16; O2SAT 97
[2024-02-19] MEDS: morphine 4 mg/mL SDV 1 mL IVP (15:03)
[2024-02-19] MEDS: iohexol 350 mg/mL 500 mL Btl (per mL) IV (15:30)
== END 2024-02-19 17:21 | disposition home or self-care (01) ==
PROVIDERS: Emergency Provider Emergency Medicine; PCP Family Medicine
DX: R51.9 Headache, unspecified (principal); Z79.82 Long term (current) use of aspirin; Z11.52 Encounter for screening for COVID-19
CPT/HCPCS: 70450; 70496; 70498; 80053; 85025; 87426; 87804; 96365; 96375; 96376; 99285; J1100; J1170; J1200; J2270; J2360; J2405; J2765; J3490; Q9967

== ENCOUNTER → 2024-02-22 08:04 | Outpatient (BNVA) | payer MEDICARE, SELFPAY | PROVIDERS: PCP Family Medicine; Visit Provider Psychiatry & Neurology Neurology | DX: G43.011 Migraine without aura, intractable, with status migrainosus (principal); M54.81 Occipital neuralgia | CPT/HCPCS: 99203 ==

== ENCOUNTER → 2024-02-25 13:15 | Outpatient (BNVA) | payer MEDICARE, SELFPAY | PROVIDERS: PCP Family Medicine; Visit Provider Internal Medicine | DX: I25.10 Atherosclerotic heart disease of native coronary artery without angina pectoris (principal); I10 Essential (primary) hypertension | CPT/HCPCS: 99214 ==

== ENCOUNTER 2024-04-05 13:31 | Outpatient (CLI) | payer MEDICARE, SELFPAY ==
--- NOTE | 2024-04-05 13:45 | MR_ITS ---
WS: [id number] MRI BRAIN WITHOUT CONTRAST HISTORY: M54.81 - Occipital neuralgia COMPARISON: None available. TECHNIQUE: Diffusion imaging, multiplanar T1, T2 and FLAIR imaging obtained. No evidence for acute infarct or hemorrhage. Dominguez-white matter differentiation is normal. Mild atrophy. Very minimal small vessel ischemic disease which is slightly asymmetric to the RIGHT. N o prior large territory infarct. No hemorrhage. Ventricles and extra-axial spaces are normal. No inferior displacement of cerebellar tonsils. The sella turcica and pituitary gland are unremarkabl e. Dural venous sinuses and [place] demonstrate no abnormality on this unenhanced studies. Paranasal sinuses: Small mucous retention cyst in the LEFT maxillary sinus. Mastoid air cells: Normal. Calvarium and scalp: Intact. MR/MR head wo con* [id number] IMPRESSION: 1. No acute infarct or hemorrhage. 2. Very minimal atrophy and small vessel ischemic disease. No large territory infarct.
== END 2024-04-05 13:32 | disposition home or self-care (01) ==
LOC: RAD 13:32
PROVIDERS: PCP Family Medicine; Visit Provider Psychiatry & Neurology Neurology
DX: M54.81 Occipital neuralgia (principal); G43.511 Persistent migraine aura without cerebral infarction, intractable, with status migrainosus; G31.9 Degenerative disease of nervous system, unspecified; J34.1 Cyst and mucocele of nose and nasal sinus
CPT/HCPCS: 70551

== ENCOUNTER → 2025-10-17 15:21 | Outpatient (BNVA) | payer MEDICARE, SELFPAY | PROVIDERS: PCP Nurse Practitioner Family; Visit Provider Nurse Practitioner Family | DX: I10 Essential (primary) hypertension (principal) | CPT/HCPCS: 80053; 80061; 84443; 85025; G0103 ==